=== PATIENT | female | born 1950 | race Caucasian/White ===

== ENCOUNTER 2019-02-16 22:58 | Emergency (ER) | payer MEDICARE, BC ==
[~2019-02-16] VITALS: Ht 172.7 cm; Wt 86.2 kg
--- NOTE | 2019-02-16 23:10 | NUR ---
Pt. ambulated into ED w/ c/o genitourinary pain x 3 days, pt. had uterine prolapse surgery approx. 4.5 weeks ago, denies flank pain, N/V/D
--- NOTE | 2019-02-16 23:15 | NUR ---
Pt. up to use restroom - ambulated w/ steady gait, urine specimen collected and sent to lab - no blood clots noted,
--- NOTE | 2019-02-16 23:24 | NUR ---
at bedside for MSE,
[2019-02-16 23:27] LABS: *BILIRUBIN,URIN NEGATIVE (NEGATIVE); *CLARITY,URINE CLEAR (CLEAR); *COLOR,URINE YELLOW (YELLOW); *KETONES,URINE NEGATIVE (NEGATIVE); *UROBILINOGEN,URINE 0.2 E.U./dl (NORMAL); LEUKOCYTE ESTERASE ,URINE 1+ (NEGATIVE); NITRITE, URINE NEGATIVE (NEGATIVE); PH,URINE 5.5 (5.0-8.0); UGLUCOSE NEGATIVE (NEGATIVE)
[2019-02-16 23:31] LABS: *BLOOD, URINE TRACE (NEGATIVE)
[2019-02-16 23:34] LABS: BACTERIA,URINE NONE SEEN /HPF (NONE SEEN); RBC,URINE 0-3 /HPF (0-3); SQUAMOUS EPITHELIAL CELL,UR FEW /HPF (NONE SEEN)
[2019-02-17] MEDS ORDERED: NITROFURANTOIN/NITROFURAN MAC 100 MG CAPSULE PO ONE
[2019-02-17] MEDS ORDERED: PHENAZOPYRIDINE HCL 100 MG TABLET PO ONE
[2019-02-17] MEDS ORDERED: NITROFURANTOIN/NITROFURAN MAC 100 MG CAPSULE ONE (00:01)
[2019-02-17] MEDS ORDERED: PHENAZOPYRIDINE HCL 100 MG TABLET ONE (00:01)
--- NOTE | 2019-02-17 00:03 | NUR ---
Patient discharged to home in stable conditon. Written and verbal after care instructions given. Patient verbalizes understanding of instructions. Pt. d/c w/ prescription per MD order, d/c papers signed, all belongings w/ pt., ID band removed, ambulated off unit w/ steady gait accompanied by TYRON
== END 2019-02-17 00:05 | disposition home or self-care (01) ==
LOC: ER 23:03
DX: N39.0 Urinary tract infection, site not specified (principal)
CPT/HCPCS: 87086; A4663

== ENCOUNTER 2025-01-07 14:15 | Emergency (ER) | payer OTHER, MEDICARE, BC ==
[~2025-01-07] VITALS: Ht 172.7 cm; Wt 89.8 kg
[2025-01-07] MEDS: ACETAMINOPHEN 500 MG TABLET PO ONE (16:25)
[2025-01-07] MEDS ORDERED: ACETAMINOPHEN 500 MG TABLET ONE (16:25)
[2025-01-07 18:52] VITALS: BP 126/75; TEMP 98
== END 2025-01-07 18:52 | disposition home or self-care (01) ==
LOC: ER 14:15
DX: S06.0X0A Concussion without loss of consciousness, initial encounter (principal); S16.1XXA Strain of muscle, fascia and tendon at neck level, initial encounter; Z88.7 Allergy status to serum and vaccine; V89.2XXA Person injured in unspecified motor-vehicle accident, traffic, initial encounter; Y93.89 Activity, other specified; Y92.488 Other paved roadways as the place of occurrence of the external cause; Y99.8 Other external cause status
CPT/HCPCS: 70450; 72125; A4606; A4663; A9150